=== PATIENT | female | born 1970 | race Hispanic/Latino ===

== ENCOUNTER 2023-12-21 14:45 | Outpatient (CLI) | payer OTHER | END 2023-12-21 14:46 | disposition home or self-care (01) | LOC: BICMRI 14:45 | PROVIDERS: ATTEND Orthopaedic Surgery | DX: M50.122 Cervical disc disorder at C5-C6 level with radiculopathy (principal); M50.123 Cervical disc disorder at C6-C7 level with radiculopathy; M48.02 Spinal stenosis, cervical region; G95.89 Other specified diseases of spinal cord | CPT/HCPCS: 72141 ==